=== PATIENT | female | born 1935 | race Two or more races ===

== ENCOUNTER 2024-12-08 19:01 | Emergency (ER) | payer OTHER ==
[~2024-12-08] VITALS: Ht 160 cm; Wt 43.1 kg
[2024-12-08] MEDS ORDERED: ATORVASTATIN CA40 MG PO (19:14)
[2024-12-08] MEDS ORDERED: RALOXIFENE HCL60 MG PO (19:15)
[2024-12-08] MEDS ORDERED: GLIPIZIDE XL2.5 MG PO (19:15)
[2024-12-08] MEDS ORDERED: CEFTRIAXONE SODIUM 1,000 MG VIAL IV ONE (20:45)
[2024-12-08] MEDS ORDERED: INSULIN REGULAR, HUMAN 1,000 UNIT/10 ML UNITS IV ONE (20:45)
[2024-12-08] MEDS ORDERED: CEFTRIAXONE SODIUM 1,000 MG VIAL ONE (20:52)
[2024-12-08 21:40] LABS: HEMATOCRIT 37.1 % (36.0-45.00); MEAN CELL VOLUME 93.9 fL (80.00-100.00); MEAN CORPUSCULAR HEMOGLOBIN 30.4 pg (27.00-32.0); MEAN CORPUSCULAR HGB CONC 32.3 g/dl (32.0-36.0); PLATELET COUNT 184 K/uL (150-450); RED BLOOD COUNT 3.95 M/uL (4.00-6.00); RED CELL DISTRIBUTION WIDTH 19.1 % (11.5-14.5)
[2024-12-08 21:49] LABS: CREATININE SERUM 1.51 mg/dL (0.55-1.02); GFR 32.52; POTASSIUM 5.28 mEq/L (3.5-5.1)
[2024-12-08] MEDS ORDERED: INSULIN REGULAR, HUMAN 1,000 UNIT/10 ML UNITS SUBCUTANEO ONE (22:45)
[2024-12-08] MEDS ORDERED: 0.9 % SODIUM CHLORIDE 1,000 ML IV SCH (22:45)
[2024-12-08] MEDS ORDERED: DUI500 PO (23:48)
== END 2024-12-09 00:38 | disposition home or self-care (01) ==
LOC: ER 19:02
PROVIDERS: General Practice
DX: R60.0 Localized edema (principal); R73.9 Hyperglycemia, unspecified
CPT/HCPCS: 36415; 96365; 96366; 99282; J0696; J1815; J7030